=== PATIENT | male | born 1990 | race Caucasian/White ===

== ENCOUNTER → 2018-07-10 11:43 | Outpatient (CLI) | payer OTHER, SELFPAY ==
--- NOTE | 2018-07-10 | DI.RAD.S_ITS ---
PROCEDURE: XR WRIST LT MIN 3V INDICATIONS: POLYARTHRITIS TECHNIQUE: 3 views of the wrist were acquired. COMPARISON: None. FINDINGS: Bones: No fractures or dislocations. No suspicious bony lesions. Preserved joint spaces. No bony erosion or periarticular osteopenia. Soft tissues: No suspicious soft tissue calcifications. IMPRESSION: Normal exam. Dictated by: Chioc Moss M.D. on 07/10/2018 at 17:07 Approved by: Chico Moss M.D. on 07/10/2018 at 17:08
--- NOTE | 2018-07-10 | DI.RAD.S_ITS ---
PROCEDURE: XR HAND RT MIN 3V INDICATIONS: POLYARTHRITIS TECHNIQUE: 3 views of the hand(s) acquired. COMPARISON: None. FINDINGS: Bones: No fractures or dislocations. Carpal bones are normally aligned. No suspicious bony lesions. Joint spaces are preserved. No bony erosion or periarticular osteopenia. Soft tissues: No suspicious soft tissue calcifications. IMPRESSION: Normal exam. Dictated by: Chico Moss M.D. on 07/10/2018 at 17:03 Approved by: Chico Moss M.D. on 07/10/2018 at 17:03
--- NOTE | 2018-07-10 | DI.RAD.S_ITS ---
PROCEDURE: XR KNEE LT 3V INDICATIONS: POLYARTHRITIS TECHNIQUE: 3 views of the knee were acquired. COMPARISON: None. FINDINGS: Bones: No fractures or dislocations. No suspicious bony lesions. Preserved the joint space. No pepe-articular bony erosion or osteopenia. Soft tissues: No joint effusion. No suspicious soft tissue calcifications. IMPRESSION: Normal exam. Dictated by: Chico Moss M.D. on 07/10/2018 at 17:03 Approved by: Chico Moss M.D. on 07/10/2018 at 17:04
--- NOTE | 2018-07-10 | DI.RAD.S_ITS ---
PROCEDURE: XR WRIST RT MIN 3V INDICATIONS: POLYARTHRITIS TECHNIQUE: 80 views of the wrist were acquired. COMPARISON: [facility], CR, XR WRIST LT MIN 3V, 07/10/2018, 11:29. FINDINGS: Bones: No fractures or dislocations. No suspicious bony lesions. Subtle lucency in the ulna styloid suggests bony erosion. No narrowing or periarticular osteopenia. Soft tissues: No suspicious soft tissue calcifications. IMPRESSION: ? Bony erosion involving the ulna styloid. Dictated by: Chico Moss M.D. on 07/10/2018 at 17:04 Approved by: Chico Moss M.D. on 07/10/2018 at 17:07
--- NOTE | 2018-07-10 | DI.RAD.S_ITS ---
PROCEDURE: XR HAND LT MIN 3V INDICATIONS: POLYARTHRITIS TECHNIQUE: 3 views of the hand(s) acquired. COMPARISON: None. FINDINGS: Bones: No fractures or dislocations. Carpal bones are normally aligned. No suspicious bony lesions. Preserved joint space. No bone erosion or periarticular osteopenia. Soft tissues: No suspicious soft tissue calcifications. IMPRESSION: Normal exam. Dictated by: Chico Moss M.D. on 07/10/2018 at 17:02 Approved by: Chico Moss M.D. on 07/10/2018 at 17:02
== END ==
PROVIDERS: PCP Physician Assistant; Visit Provider Physician Assistant
DX: M13.0 Polyarthritis, unspecified (principal); M25.562 Pain in left knee; M25.531 Pain in right wrist; M25.532 Pain in left wrist
CPT/HCPCS: 73110; 73130; 73562